=== PATIENT | female | born 1995 | race Caucasian/White ===

== ENCOUNTER 2022-08-17 06:02 | Inpatient (IN) | payer BC ==
[2022-08-17 07:12] VITALS: BMI 24.7
[2022-08-17] MEDS: Lactated Ringer's 1,000 ML IV SCH ×2 (07:25→12:00)
[2022-08-17 07:30] LABS: Fetal Membranes Rupture RUPTURE DETECTED (No Rupture)
[2022-08-17] MEDS ORDERED: ePHEDrine Sulfate 50 MG/10 ML VIAL ONE (08:00)
[2022-08-17] MEDS ORDERED: Fentanyl 2 mcg/Bup 0.1% Cadd 100 ML ONE (08:05)
[2022-08-17] MEDS ORDERED: Methylergonovine 0.2 MG/ML VIAL IM PRN (08:08)
[2022-08-17] MEDS ORDERED: Ondansetron PF 4 MG/2 ML Vial IVP PRN ×2 (08:08→09:30)
[2022-08-17] MEDS ORDERED: Ibuprofen 800 MG TAB PO PRN (08:08)
[2022-08-17] MEDS ORDERED: hydrALAZINE 20 MG/ML VIAL SLOW IVP PRN ×2 (08:08→16:07)
[2022-08-17] MEDS ORDERED: Butorphanol Tartrate 1 MG/ML VIAL SLOW IVP PRN (08:08)
[2022-08-17] MEDS ORDERED: Misoprostol 200 MCG TAB PR PRN (08:08)
[2022-08-17] MEDS ORDERED: Promethazine HCl 25 MG/ML VIAL IM PRN ×2 (08:08→09:30)
[2022-08-17] MEDS ORDERED: HYDROcodone/Acetaminophen 5/325 mg Tablet PO PRN ×4 (08:08→16:07)
[2022-08-17] MEDS ORDERED: Lidocaine 1% (PF) 30 ML VIAL SC PRN (08:08)
[2022-08-17] MEDS ORDERED: NS w/ Oxytocin 30 units 500 ML IV SCH ×3 (08:15→16:07)
[2022-08-17 08:26] LABS: Hemoglobin 13.1 g/dL (12.0-15.5); Mean Corpuscular HGB CONC 33.8 g/dL (32.0-36.0); Mean Corpuscular Hemoglobin 29.3 pg (27.0-33.0); Mean Corpuscular Volume 86.8 fl (81.6-98.3); Mean Platelet Volume 11.2 fl (7.4-10.4); Platelet Count 228 10x3/uL (150-450); RBC Distribution Width 12.4 % (11.5-14.5); Red Blood Cell (RBC) Count 4.47 10x6/uL (3.90-5.03); White Blood Cell (WBC) Count 9.8 10x3/uL (3.5-10.5)
[2022-08-17 09:15] LABS: HBSAg Index 0.23 S/CO (0-0.99); Hep B Surf Ag Non-Reactive S/CO (NonReactive); Syphilis Antibody Nonreactive (Nonreactive); Syphilis Antibody Index 0.05 S/CO (<1.00 Non-Reactive)
[2022-08-17] MEDS ORDERED: Naloxone HCl 0.4 mg/ml Vial IVP PRN ×2 (09:30)
[2022-08-17] MEDS ORDERED: Fentanyl 2 mcg/Bupivacaine 0.1% Cassette 100 ML EPIDURAL SCH (09:30)
[2022-08-17] MEDS ORDERED: Acetaminophen 325 MG TAB PO PRN (09:30)
[2022-08-17] MEDS ORDERED: Moisturizing Cream (Eucerin) 113 GM JAR TOP PRN (09:30)
[2022-08-17] MEDS ORDERED: Communication Order-Pharmacy FS SCH (09:30)
[2022-08-17] MEDS ORDERED: Lactated Ringer's 500 ML IV PRN (09:30)
[2022-08-17] MEDS ORDERED: ePHEDrine Sulfate 50 MG/10 ML VIAL SLOW IVP PRN (09:30)
[2022-08-17] MEDS ORDERED: diphenhydrAMINE 50 MG/ML VIAL IVP PRN (09:30)
[2022-08-17 10:40] LABS: SARS-CoV-2 NAA Rapid Test Not Detected (NotDetected)
[2022-08-17] MEDS ORDERED: Dextrose 5%-Lactated Ringers 1,000 ML IV SCH (13:00)
[2022-08-17] MEDS ORDERED: Benzocaine-Menthol 82.5 ML CAN TOP PRN (16:07)
[2022-08-17] MEDS ORDERED: Milk Of Magnesia 30 ML UDCUP PO PRN (16:07)
[2022-08-17] MEDS ORDERED: Lanolin Ointment 7 GM TUBE TOP PRN (16:07)
[2022-08-17] MEDS ORDERED: Misoprostol 200 MCG TAB VAG PRN (16:07)
[2022-08-17] MEDS ORDERED: Bisacodyl 10 MG SUPP PR PRN (16:07)
[2022-08-17] MEDS ORDERED: Boostrix 0.5 ML (Tdap) VIAL (>/=7 yrs of age) IM ONE (16:07)
[2022-08-17] MEDS: Ibuprofen 800 MG TAB PO SCH (17:49)
[2022-08-17] MEDS: Ferrous Sulfate 325 MG TAB PO SCH (18:04)
[2022-08-17] MEDS: Docusate 100 MG CAP PO SCH (21:16)
[2022-08-18] MEDS: Ibuprofen 800 MG TAB PO SCH ×3 (02:00→16:26)
[2022-08-18] MEDS: Ferrous Sulfate 325 MG TAB PO SCH ×2 (09:02→16:27)
[2022-08-18] MEDS: Docusate 100 MG CAP PO SCH ×2 (09:50→22:24)
[2022-08-18] MEDS: Prenatal Vitamin 1 TAB PO SCH (09:51)
[2022-08-19] MEDS: Ibuprofen 800 MG TAB PO SCH ×2 (00:07→09:29)
[2022-08-19 08:17] VITALS: BP 123/84; TEMP 98.3
[2022-08-19] MEDS: Ferrous Sulfate 325 MG TAB PO SCH (09:06)
[2022-08-19] MEDS: Prenatal Vitamin 1 TAB PO SCH (09:26)
[2022-08-19] MEDS: Docusate 100 MG CAP PO SCH (09:26)
== END 2022-08-19 13:30 | disposition home or self-care (01) | DRG 807 ==
LOC: CSHLD/OP 06:02 → CSHLD 07:57 → CSHPP 16:07
PROVIDERS: ADMIT Obstetrics & Gynecology; ATTEND Obstetrics & Gynecology
PROC: 0HQ9XZZ Repair Perineum Skin, External Approach (ICD-10-PCS; principal; 2022-08-17)
PROC: 10E0XZZ Delivery of Products of Conception, External Approach (ICD-10-PCS; 2022-08-17)
DX: O42.02 Full-term premature rupture of membranes, onset of labor within 24 hours of rupture (principal); Z37.0 Single live birth; O70.0 First degree perineal laceration during delivery; Z3A.39 39 weeks gestation of pregnancy; Z20.822 Contact with and (suspected) exposure to COVID-19
CPT/HCPCS: 51702; 84112; 85027; 86780; 86850; 86900; 86901; 87340; 99285; J2590; J7120; U0002